=== PATIENT | female | born 1975 | race Caucasian/White ===

== ENCOUNTER 2022-10-22 01:36 | Emergency (ER) | payer BC ==
[~2022-10-22] VITALS: Ht 167.6 cm; Wt 79.0 kg
[2022-10-22 02:03] LABS: CLARITY URINE CLEAR (CLEAR); COLOR URINE YELLOW (YELLOW); KETONES URINE NEGATIVE (NEGATIVE); LEUKOCYTE ESTERASE URINE NEGATIVE (NEGATIVE); NITRITE URINE NEGATIVE (NEGATIVE); OCCULT BLOOD URINE NEGATIVE (NEGATIVE); PROTEIN URINE NEGATIVE (NEGATIVE); UROBILINOGEN URINE 0.2 E.U./dL (0.2-1.0)
[2022-10-22 03:25] LABS: BASOPHILS % 0.6 % (0.0-2.0); EOSINOPHILS % 0.6 % (0.0-5.0); HEMATOCRIT. 35.5 % (36.0-48.0); HEMOGLOBIN. 11.7 g/dL (12.0-16.0); LYMPHOCYTES % 22.7 % (20.0-50.0); MEAN CORPUSCULAR HEMOGLOBIN 27.3 pg (28.0-32.0); MEAN CORPUSCULAR VOLUME 82.6 fL (81.0-99.0); MEAN PLATELET VOLUME 8.2 fl (7.4-10.4); MONOCYTES % 9.1 % (2.0-8.0); PLATELET 258 x1000/uL (130-400); RED BLOOD CELL COUNT 4.29 mill/uL (4.2-5.4); RED CELL DISTRIBUTION WIDTH 17.3 % (11.6-14.6)
[2022-10-22 03:34] LABS: CHLORIDE 107 mEq/L (98-107)
[2022-10-22 03:42] LABS: HCG SCREEN NEGATIVE
[2022-10-22] MEDS ORDERED: KETOROLAC 60MG/2ML VIAL IM STA (03:52)
[2022-10-22] MEDS ORDERED: ONDANSETRON HCL 4MG/2ML INJ IM ONE (04:00)
[2022-10-22] MEDS ORDERED: FAMOTIDINE 20MG TABLET PO ONE (04:00)
[2022-10-22] MEDS ORDERED: MAGNESIUM/ALUMINUM HYDROXIDE/SIMETHICONE 30ML UDC PO ONE (04:00)
[2022-10-22] MEDS ORDERED: SUCR1TAB PO (05:54)
[2022-10-22] MEDS ORDERED: FAMO20TA8 MT (05:54)
[2022-10-22] MEDS ORDERED: ACET-2708 PO (05:54)
[2022-10-22 05:57] VITALS: BP 134/82
== END 2022-10-22 06:03 | disposition home or self-care (01) ==
LOC: ER 02:05
DX: K29.70 Gastritis, unspecified, without bleeding (principal)
CPT/HCPCS: 36415; 80053; 81003; 83690; 84703; 85025; 96372; 99284; J1885; J2405; Z7610